=== PATIENT | female | born 1950 | race Caucasian/White ===

== ENCOUNTER → 2025-04-04 07:26 | Outpatient (REF) | payer MEDICARE, OTHER, SELFPAY | LOC: RCS 07:26 | PROVIDERS: ATTENDING PHYSICIAN Emergency Medicine | DX: Z72.0 Tobacco use (principal); R20.2 Paresthesia of skin; R01.1 Cardiac murmur, unspecified | CPT/HCPCS: 93306; 93922; 93925 ==

== ENCOUNTER → 2025-04-20 10:55 | Outpatient (REF) | payer MEDICARE, OTHER, SELFPAY | LOC: HWWDC 10:55 | PROVIDERS: ATTENDING PHYSICIAN Emergency Medicine | DX: Z12.31 Encounter for screening mammogram for malignant neoplasm of breast (principal); M81.0 Age-related osteoporosis without current pathological fracture | CPT/HCPCS: 77063; 77067; 77080 ==